=== PATIENT | female | born 1960 | race Caucasian/White ===

== ENCOUNTER 2016-12-01 03:10 | Emergency (ER) | payer MEDICAID ==
[2016-12-01 03:28] VITALS: BMI 37.8
[2016-12-01] MEDS ORDERED: Sodium Chloride 0.9% 1,000 ML IV STA ×2 (03:52→04:47)
[2016-12-01 04:24] LABS: ADD MANUAL DIFF? NO
[2016-12-01 04:33] LABS: VENOUS BLOOD GAS BASE EXCESS -1.9 mmol/L (0.0-2.0); VENOUS BLOOD PH 7.33 (7.32-7.43)
[2016-12-01 04:40] LABS: HEMATOCRIT 40.4 % (36.0-48.0); MEAN CELL VOLUME 92.9 fL (80.0-105.0); MEAN CORPUSCULAR HEMOGLOBIN 30.6 pg (25.0-35.0); MEAN CORPUSCULAR HGB CONC 32.9 g/dl (31.0-37.0); PLATELET COUNT 190 10^3/uL (120.0-450.0); RED CELL DISTRIBUTION WIDTH 13.3 % (11.5-14.5); WHITE BLOOD COUNT 4.5 10^3/ul (4.5-11.0)
[2016-12-01 04:41] LABS: BASO # 0.01 K/mm3 (0.0-2.0); BASO % 0.2 % (0.0-3.0); EOS # 0.1 (0.0-0.7); EOS % 2.9 % (1.5-5.0); GRAN # 3.25 (1.4-6.5); GRAN % 72.6 % (50.0-68.0); LYMPH # 0.6 (1.2-3.4); LYMPH % 13.8 % (22.0-35.0); MEAN PLATELET VOLUME 10.3 fl (7.0-11.0); MONO # 0.5 (0.1-0.6); MONO % 10.5 % (1.0-6.0)
[2016-12-01 04:42] LABS: ALKALINE PHOSPHATASE 65 U/L (38-133); ALT/SGPT 34 U/L (7-56); AST/SGOT 35 U/L (15-39); BILIRUBIN,TOTAL 0.4 mg/dL (0.2-1.3); BLOOD UREA NITROGEN 19 mg/dL (7-21); CALCIUM 9.4 mg/dL (8.4-10.5); CARBON DIOXIDE 26 mmol/L (21-33); CHLORIDE 106 mmol/L (95-110); GFR AFRICAN-AMERICAN > 60; GLUCOSE,RANDOM 112 mg/dL (70-110); MAGNESIUM 1.8 mg/dL (1.7-2.2); PHOSPHOROUS 3.4 mg/dL (2.5-4.5); POTASSIUM 4.9 mmol/L (3.6-5.0); SODIUM 141 mmol/L (132-148); TOTAL PROTEIN 8.4 g/dL (5.8-8.3)
--- NOTE | 2016-12-01 05:17 | ED PDOC ---
Arrival/HPI - General Chief Complaint: Flu-like Symptoms Time Seen by Provider: 12/01/16 03:44 Historian: Patient - History of Present Illness Narrative History of Present Illness (Text): 12/01/16 05:14 56 year old female whose past medical history includes hypertension, diabetes, and hypothyroidism presents to the Emergency department complaining of fever, dry cough, rhinorrhea, chills, generalized body aches, and right ear pain. She denies shortness of breath, chest pain, nausea, vomiting, diarrhea, or abdominal pain. She denies any sick contacts or recent travel. Denies recent antibiotic use. PMD: Dr. Whitmore Time/Duration: < week Symptom Onset: Gradual Symptom Course: Unchanged Activities at Onset: Rest Past Medical History - Provider Review Nursing Documentation Reviewed: Yes - Cardiac Hx Hypertension: Yes - Pulmonary Hx Respiratory Disorders: No - Neurological Hx Neurological Disorder: No - HEENT Hx HEENT Disorder: No - Renal Hx Renal Disorder: No - Endocrine/Metabolic Hx Diabetes Mellitus Type 2: Yes Hx Hypothyroidism: Yes - Hematological/Oncological Hx Blood Disorders: No - Integumentary Hx Dermatological Disorder: No - Musculoskeletal/Rheumatological Hx Musculoskeletal Disorders: No - Gastrointestinal Hx Gastrointestinal Disorders: No - Genitourinary/Gynecological Hx Genitourinary Disorders: No - Psychiatric Hx Depression: No Hx Emotional Abuse: No Hx Physical Abuse: No Hx Substance Use: No - Past Surgical History Past Surgical History: No Previous - Surgical History Hx Tonsillectomy: Yes - Anesthesia Hx Anesthesia: No Hx Anesthesia Reactions: No Hx Malignant Hyperthermia: No - Suicidal Assessment Feels Threatened In Home Enviroment: No Family/Social History - Physician Review Nursing Documentation Reviewed: Yes Family/Social History: Unknown Family HX Smoking Status: Never Smoked Hx Alcohol Use: No Hx Substance Use: No Allergies/Home Meds Allergies/Adverse Reactions: Allergies Penicillins Allergy (Verified 12/01/16 03:28) RASH Home Medications: Home Meds Medication Instructions Recorded Confirmed Amlodipine Besylate [Amlodipine] 5 mg PO DAILY 02/14/14 12/01/16 Levothyroxine Sodium 25 mcg PO DAILY 02/14/14 12/01/16 [Levothyroxine Sodium] MetFORMIN [glucoPHAGE] 500 mg PO DAILY 02/14/14 12/01/16 Valsartan [Diovan] 160 mg PO DAILY 02/14/14 12/01/16 Simvastatin [Zocor] 20 mg PO DAILY 12/01/16 12/01/16 Review of Systems - Physician Review All systems were reviewed & negative as marked: Yes - Review of Systems Constitutional: Fevers, Other (+Chills; +generalized body aches) ENT: Rhinorrhea, Other (+right ear pain) Respiratory: Cough. absent: SOB, Sputum Cardiovascular: absent: Chest Pain Gastrointestinal: absent: Abdominal Pain, Diarrhea, Nausea, Vomiting Physical Exam Vital Signs Reviewed: Yes Vital Signs Temp Pulse Resp BP Pulse Ox 12/01/16 06:06 99.3 F 12/01/16 06:04 99.2 F 96 H 19 125/61 95 12/01/16 05:57 116 H 12/01/16 05:13 99.7 F H 118 H 19 119/76 96 12/01/16 03:41 100.7 F H 134 H 18 128/79 96 12/01/16 03:31 164/87 H 12/01/16 03:29 102.2 F H 139 H 14 96 Temperature: Afebrile Blood Pressure: Normal Pulse: Regular Respiratory Rate: Normal Appearance: Positive for: Well-Appearing, Non-Toxic, Comfortable Pain Distress: None Mental Status: Positive for: Alert and Oriented X 3 - Systems Exam Head: Present: Atraumatic, Normocephalic Pupils: Present: PERRL Extroacular Muscles: Present: EOMI Conjunctiva: Present: Normal Ears: Present: Normal, NORMAL TM, Normal Canal. No: Erythema, TM Bulging, Fluid , TM Perf Mouth: Present: Moist Mucous Membranes Nose (Internal): Present: Other (+nasal congestion) Neck: Present: Normal Range of Motion Respiratory/Chest: Present: Clear to Auscultation, Good Air Exchange, Other (O2 saturation 92% on room air). No: Respiratory Distress, Accessory Muscle Use, Wheezes, Rales, Rhonchi Cardiovascular: Present: Regular Rate and Rhythm, Normal S1, S2. No: Murmurs, Rub, Gallop Abdomen: Present: Normal Bowel Sounds. No: Tenderness, Distention, Peritoneal Signs, Rebound, Guarding Back: Present: Normal Inspection Upper Extremity: Present: Normal Inspection. No: Cyanosis, Edema Lower Extremity: Present: Normal Inspection. No: Edema Neurological: Present: GCS=15, CN II-XII Intact, Speech Normal Skin: Present: Warm, Dry, Normal Color. No: Rashes Psychiatric: Present: Alert, Oriented x 3, Normal Insight, Normal Concentration Medical Decision Making ED Course and Treatment: 12/01/16 05:22 Impression: 54 year old female complaining of fever, cough, chills, generalized body aches , rhinorrhea, and right ear pain. Physical exam revealed nasal congestion. Rule out influenza and PNA. Plan: --Chest X-ray --rapid flu --Urinalysis --blood culture, urine culture --Labs --Tylenol, Tamiflu, IVF -- Reassess and disposition Prior Visits: Notes and results from previous visits were reviewed. Progress Notes: On reevaluation, patient felt better. She denies dizziness or lightheadedness. Fever reduced. HR improved to the 90's. Influenza +. Patient treated with Tamiflu. She is tolerating PO fluids in the ED. Her will take her home. - Lab Interpretations Lab Results: 12/01/16 04:15 12/01/16 04:15 Lab Results 12/01/16 04:15: WBC 4.5, RBC 4.35, Hgb 13.3, Hct 40.4, MCV 92.9, MCH 30.6, MCHC 32.9, RDW 13.3, Plt Count 190, MPV 10.3, Gran % 72.6 H, Lymph % (Auto) 13.8 L, [place] % (Auto) 10.5 H, Eos % (Auto) 2.9, Baso % (Auto) 0.2, Gran # 3.25, Lymph # 0.6 L, [place] # 0.5, Eos # 0.1, Baso # 0.01, pO2 57 H, VBG pH 7.33, VBG pCO2 46.0 , VBG HCO3 24.3, VBG Total CO2 25.7, VBG O2 Sat (Calc) 89.8 H, VBG Base Excess - 1.9 L, VBG Potassium 4.7, Glucose 116 H, Lactate 1.6, FiO2 21.0, Sodium 140.0, Potassium 4.9, Chloride 109.0 H, Carbon Dioxide 26, Anion Gap 14, BUN 19, Creatinine 0.8, Est GFR ( Amer) > 60, Est GFR (Non-Af Amer) > 60, Random Glucose 112 H, Calcium 9.4, Phosphorus 3.4, Magnesium 1.8, Total Bilirubin 0.4, AST 35, ALT 34, Alkaline Phosphatase 65, Total Protein 8.4 H, Albumin 4.2, Globulin 4.2, Albumin/Globulin Ratio 1.0 L, Venous Blood Potassium 4.7 12/01/16 04:12: Influenza Typ A,B (EIA) Pos for influenza b H 12/01/16 03:45: Urine Color Yellow, Urine Appearance Clear, Urine pH 6.0, Ur Specific [place] >= 1.030, Urine Protein 30 H, Urine Glucose (UA) Negative, Urine Ketones Negative, Urine Blood Negative, Urine Nitrate Negative, Urine Bilirubin Negative, Urine Urobilinogen 0.2, Ur Leukocyte Esterase Negative, Urine RBC 0 - 2, Urine WBC 0 - 2, Ur Epithelial Cells 3 - 4, Urine Bacteria Few , Hyaline Casts 0 - 2 I have reviewed the lab results: Yes - RAD Interpretation Radiology Orders: 12/01/16 03:50 CHEST PORTABLE [RAD] Stat - Medication Orders Current Medication Orders: Discontinued Medications Acetaminophen (Tylenol 325mg Tab) 975 mg PO ONCE PRN PRN Reason: Fever >100.4 F Stop: 12/01/16 03:51 Last Admin: 12/01/16 06:06 Dose: 975 MG MAR Pain/Vitals Document 12/01/16 06:06 RD (Rec: 12/01/16 06:07 RD [id number]) Pain Reassessment Is This A Pain ReAssessment? No Sleep Is patient sleeping during reassessment? No Presence of Pain Presence of Pain Yes Pain Scale Used Pain Scale Used Numeric Location Pain Location Body Door Captain Description Intermittent Intensity 4 Scale Used Numeric Pain Behavior Irritability Aggravating Factors ADL's Vitals Temperature (97.6 F-99.6 F) 99.3 F Temperature Source Oral Sodium Chloride (Sodium Chloride 0.9%) 1,000 mls @ 999 mls/hr IV .Q1H1M STA Stop: 12/01/16 04:52 Last Admin: 12/01/16 04:21 Dose: 999 MLS/HR eMAR Start Stop Document 12/01/16 04:21 EDGAR (Rec: 12/01/16 04:22 Luciano [id number]) Intravenous Solution Start Date 12/01/16 Start Time 04:21 End Date 12/01/16 End time 05:22 Total Infusion Time 61 Sodium Chloride (Sodium Chloride 0.9%) 1,000 mls @ 999 mls/hr IV .Q1H1M STA Stop: 12/01/16 05:47 Last Admin: 12/01/16 05:35 Dose: 999 MLS/HR eMAR Start Stop Document 12/01/16 05:35 GMI (Rec: 12/01/16 05:36 GMI [facility] [id number]) Intravenous Solution Start Date 12/01/16 Start Time 05:36 Oseltamivir Phosphate (Tamiflu Cap) 75 mg PO STAT STA PRN Reason: Protocol Stop: 12/01/16 04:47 Last Admin: 12/01/16 04:59 Dose: 75 MG - Scribe Statement The provider has reviewed the documentation as recorded by the Jamalibmarisel Valdivia Provider Scribe Attestation: All medical record entries made by the Scribe were at my direction and personally dictated by me. I have reviewed the chart and agree that the record accurately reflects my personal performance of the history, physical exam, medical decision making, and the department course for this patient. I have also personally directed, reviewed, and agree with the discharge instructions and disposition. Disposition/Present on Arrival - Present on Arrival Any Indicators Present on Arrival: No History of DVT/PE: No History of Uncontrolled Diabetes: No Urinary Catheter: No History of Decub. Ulcer: No History Surgical Site Infection Following: None - Disposition Have Diagnosis and Disposition been Completed?: Yes Diagnosis: Influenza Disposition: HOME/ ROUTINE Disposition Time: 06:54 Patient Plan: Discharge Patient Problems: Current Active Problems Problem Status Diagnosed Influenza Acute Condition: IMPROVED Discharge Instructions (ExitCare): Influenza (ED) Additional Instructions: Tyrell, thank you for letting us take care of you today. Your provider was Dr. Toribio. You were treated for Influenza. The emergency medical care you received today was directed at your acute symptoms. If you were prescribed any medication, please fill it and take as directed. It may take several days for your symptoms to resolve. Return to the Emergency Department if your symptoms worsen, do not improve, or if you have any other problems. Please contact your doctor or call one of the physicians/clinics you have been referred to that are listed on the Patient Visit Information form that is included in your discharge packet. Bring any paperwork you were given at discharge with you along with any medications you are taking to your follow up visit. Our treatment cannot replace ongoing medical care by a primary care provider (PCP) outside of the emergency department. Thank you for allowing the [facility] team to be part of your care today. If you had an X-Ray or CT scan: A Radiologist will review the ED reading if any change in treatment is needed we will contact you. If you had a blood, urine, or wound culture: It will take several days for the results, if any change in treatment is needed we will contact you. If you had an STI test: It will take 48 hours for the results. Please call after 1 week if you have not heard back. Prescriptions: Oseltamivir Phosphate [Tamiflu] 75 mg PO BID #10 capsule Referrals: Andrea Whitmore MD [Primary Care Provider] - Follow up with primary Forms: WORK NOTE
[2016-12-01 05:21] VITALS: RESP 19
[2016-12-01 06:06] LABS: URINE BILIRUBIN NEGATIVE (NEGATIVE); URINE BLOOD NEGATIVE (NEGATIVE); URINE GLUCOSE (UA) NEGATIVE (NEGATIVE); URINE KETONE NEGATIVE (NEGATIVE); URINE LEUKOCYTE ESTERASE NEGATIVE Leu/uL (NEGATIVE); URINE PROTEIN 30 mg/dL (<30 mg/dL); URINE UROBILINOGEN 0.2 E.U./dL (<1 E.U./dL)
[2016-12-01 06:07] VITALS: TEMP 99.3
[2016-12-01 06:09] VITALS: BP 125/61; PULSE 96; O2SAT 95
[2016-12-01 06:11] LABS: URINE APPEARANCE CLEAR (CLEAR); URINE COLOR YELLOW (YELLOW)
[2016-12-01 06:40] LABS: URINE BACTERIA FEW (NEG); URINE RBC 0 - 2 /hpf (0-2); URINE WBC 0 - 2 /hpf (0-6)
--- NOTE | 2016-12-01 08:22 | RAD ---
HISTORY: Sepsis Patient COMPARISON: Chest x-ray performed 12/10/15 TECHNIQUE: Chest, one view. FINDINGS: Examination limited by habitus and hypoinflation. LUNGS: No focal consolidation. Please note that chest x-ray has limited sensitivity for the detection of pulmonary masses. PLEURA: No significant pleural effusion identified. No definite pneumothorax . CARDIOVASCULAR: The cardiomediastinal silhouette appears within normal limits of size. OSSEOUS STRUCTURES: Degenerative changes of the spine. VISUALIZED UPPER ABDOMEN: Unremarkable. OTHER FINDINGS: None. IMPRESSION: No focal consolidation, significant pleural effusion, or definite pneumothorax identified.
== END 2016-12-01 06:53 | disposition home or self-care (01) ==
LOC: ED 03:10
DX: J11.1 Influenza due to unidentified influenza virus with other respiratory manifestations (principal)
CPT/HCPCS: 71010; 80053; 81001; 82803; 83735; 84100; 85025; 87040; 87086; 87804; 96360; 96361; 99284; J7040

== ENCOUNTER 2018-01-03 15:35 | Emergency (ER) | payer MEDICAID ==
[2018-01-03 15:35] VITALS: BMI 37.8
[2018-01-03 16:12] VITALS: BP 128/81; PULSE 76; RESP 18; TEMP 98.8; O2SAT 99
--- NOTE | 2018-01-03 16:54 | ED PDOC ---
Arrival/HPI - General Chief Complaint: Eye Problem Time Seen by Provider: 01/03/18 16:46 Historian: Patient - History of Present Illness Narrative History of Present Illness (Text): 01/03/18 16:46 57 y/o female, no significant pmh, penicillin allergy, post menopausal c/o lt. eye itching and discharge x 3 days with no fall or trauma to the eye. Pt. stated that it started off with left eye itching which she has been touching the lt. upper eyelid which resulted the discharge from the left eye with lt. upper eyelid mild swelling, no change in vision, no headache, no night sweat, no rash, no painful movement of the eye, no other medical or psychological complaints. Past Medical History - Provider Review Nursing Documentation Reviewed: Yes - Cardiac Hx Hypertension: Yes - Pulmonary Hx Respiratory Disorders: No - Neurological Hx Neurological Disorder: No - HEENT Hx HEENT Disorder: No - Renal Hx Renal Disorder: No - Endocrine/Metabolic Hx Diabetes Mellitus Type 2: Yes Hx Hypothyroidism: Yes - Hematological/Oncological Hx Blood Disorders: No - Integumentary Hx Dermatological Disorder: No - Musculoskeletal/Rheumatological Hx Musculoskeletal Disorders: No - Gastrointestinal Hx Gastrointestinal Disorders: No - Genitourinary/Gynecological Hx Genitourinary Disorders: No - Psychiatric Hx Depression: No Hx Emotional Abuse: No Hx Physical Abuse: No Hx Substance Use: No - Past Surgical History Past Surgical History: No Previous - Surgical History Hx Tonsillectomy: Yes - Anesthesia Hx Anesthesia: No Hx Anesthesia Reactions: No Hx Malignant Hyperthermia: No - Suicidal Assessment Feels Threatened In Home Enviroment: No Family/Social History - Physician Review Nursing Documentation Reviewed: Yes Family/Social History: Unknown Family HX Smoking Status: Never Smoked Hx Alcohol Use: No Hx Substance Use: No Allergies/Home Meds Allergies/Adverse Reactions: Allergies Penicillins Allergy (Verified 12/01/16 03:28) RASH Home Medications: Home Meds Medication Instructions Recorded Confirmed Amlodipine Besylate [Amlodipine] 5 mg PO DAILY 02/14/14 01/03/18 Levothyroxine Sodium 25 mcg PO DAILY 02/14/14 01/03/18 [Levothyroxine Sodium] MetFORMIN [glucoPHAGE] 500 mg PO DAILY 02/14/14 01/03/18 Valsartan [Diovan] 160 mg PO DAILY 02/14/14 01/03/18 Simvastatin [Zocor] 20 mg PO DAILY 12/01/16 01/03/18 Ketotifen Fumarate [Zaditor] 1 drop OU DAILY 01/03/18 01/03/18 Review of Systems - Review of Systems Constitutional: absent: Fatigue, Fevers Eyes: Other (lt. eye lid swelling). absent: Vision Changes ENT: absent: Hearing Changes Respiratory: absent: SOB, Cough Cardiovascular: absent: Chest Pain Gastrointestinal: absent: Abdominal Pain, Nausea, Vomiting Musculoskeletal: absent: Arthralgias, Back Pain Skin: absent: Rash, Pruritis Neurological: absent: Headache Psychiatric: absent: Anxiety, Depression Physical Exam Vital Signs Reviewed: Yes Vital Signs Temp Pulse Resp BP Pulse Ox 01/03/18 16:07 98.8 F 76 18 128/81 99 Temperature: Afebrile Blood Pressure: Normal Pulse: Regular Respiratory Rate: Normal Appearance: Positive for: Well-Appearing, Non-Toxic, Comfortable Pain Distress: None Mental Status: Positive for: Alert and Oriented X 3 - Systems Exam Head: Present: Atraumatic, Normocephalic Pupils: Present: PERRL Extroacular Muscles: Present: EOMI Conjunctiva: Present: Other (Lt. upper eyelid stye noted with lt. conjunctvitis , mild left upper eyelid swelling. ) Mouth: Present: Moist Mucous Membranes Neck: Present: Normal Range of Motion Respiratory/Chest: Present: Clear to Auscultation, Good Air Exchange. No: Respiratory Distress, Accessory Muscle Use Cardiovascular: Present: Regular Rate and Rhythm, Normal S1, S2. No: Murmurs Abdomen: No: Tenderness, Distention, Peritoneal Signs Back: Present: Normal Inspection Upper Extremity: Present: Normal Inspection. No: Cyanosis, Edema Lower Extremity: Present: Normal Inspection. No: Edema Neurological: Present: GCS=15, Speech Normal, Motor Func Grossly Intact, Gait Normal, Memory Normal Skin: Present: Warm, Dry, Normal Color. No: Rashes Psychiatric: Present: Alert, Oriented x 3, Normal Insight, Normal Concentration Medical Decision Making ED Course and Treatment: 01/03/18 16:56 -Discharge home with clindamycin, erythromycin opthalmic, motrin, zyrtec, follow up with your own pmd and opthalmologist within 2 days, return to the ER for any new or worsening signs or symptoms. - PA / MECHANIST / Resident Statement MD/DO has reviewed & agrees with the documentation as recorded. Disposition/Present on Arrival - Present on Arrival Any Indicators Present on Arrival: No History of DVT/PE: No History of Uncontrolled Diabetes: No Urinary Catheter: No History of Decub. Ulcer: No History Surgical Site Infection Following: None - Disposition Have Diagnosis and Disposition been Completed?: Yes Diagnosis: Stye, Conjunctivitis, Swelling of eyelid Disposition: HOME/ ROUTINE Disposition Time: 16:57 Patient Plan: Discharge Condition: GOOD Additional Instructions: -Discharge home with clindamycin, erythromycin opthalmic, motrin, zyrtec, follow up with your own pmd and opthalmologist within 2 days, return to the ER for any new or worsening signs or symptoms. Prescriptions: Clindamycin [Cleocin] 300 mg PO TID #30 cap Erythromycin 0.5% [Ilytocin] 0.5 in OP QID #1 tube Ibuprofen [Motrin] 600 mg PO TID PRN #21 tab PRN Reason: Other Loratadine [Claritin] 10 mg PO DAILY PRN #10 tab PRN Reason: Other Referrals: Andrea Whitmore MD [Primary Care Provider] - Follow up with primary Javad Arroyo [Staff Provider] - Follow up with primary Forms: WORK NOTE
== END 2018-01-03 17:36 | disposition home or self-care (01) ==
LOC: ED 15:35
DX: H00.024 Hordeolum internum left upper eyelid (principal); H10.9 Unspecified conjunctivitis